=== PATIENT | male | born 1995 | race Caucasian/White ===

== ENCOUNTER 2016-11-14 11:45 | Emergency (ER) | payer MEDICAID, OTHER ==
[~2016-11-14] VITALS: Wt 85.0 kg
[~2016-11-14 11:45] MED LIST: ACET325T33 PO; ACET500C5 PO; ALBU2.5V36 NEB; ALBU8.5H3; ALBU8.5H3 INH; CLOT15CR62 TOP; ESOM40CA PO; IBUP-1542 PO; NEBU1EAC MC; OMEP20CA16 PO; OSLT75C PO; PRED20TA PO; UDMYL PO
[2016-11-14] MEDS ORDERED: DEXAMETHASONE 10 MG/ML 1 ML INJ IM STA (13:05)
[2016-11-14] MEDS ORDERED: ALBUTEROL 0.5% (NEB) 2.5 MG/0.5 ML AMP NEB STA (13:05)
--- NOTE | 2016-11-14 13:34 | RADRPT ---
PROCEDURE: XR Chest. CLINICAL INDICATION: Dyspnea TECHNIQUE: Single frontal chest x-ray. COMPARISON: 09/26/2016 FINDINGS: The lungs are clear. No focal opacification is seen. The cardiomediastinal silhouette is unremarka ble. The osseous structures are unremarkable. IMPRESSION: 1. There is no acute cardiopulmonary process. 2. Stable appearances over time. RPTAT: PP .Tomás Maxwell MD, MD Date Time Electronically viewed and signed by .Tomás Maxwell MD, on 11/14/2016 13:34 .B/
[2016-11-14] MEDS ORDERED: ALBU8.5H3 INH (14:00)
[2016-11-14] MEDS ORDERED: PRED20TA PO (14:00)
[2016-11-14 14:07] VITALS: BP 124/57; PULSE 89; RESP 18; TEMP 98.2
--- NOTE | 2016-11-14 14:07 | ERD ---
ER Documentation Chief Complaint Date/Time DATE: 11/14/16 TIME: 14:02 Chief Complaint ASTHMA OUT OF MEDS HPI This is a 21-year-old male presenting to emergency department for cough and wheezing 1 week. Patient states cough is dry nonproductive. Patient states wheezing has worsened over the last 24 hours. Patient states he has been using his pro-air inhaler more frequently and is now out of medication. Temp of 99F at home. Did not take any medications Tylenol or Motrin. Denies difficulty breathing or shortness of breath. No chest pain. ROS All systems reviewed and are negative except as per history of present illness. Medications Home Meds Active Scripts Prednisone* (Prednisone*) 20 Mg Tab, 40 MG PO DAILY for 4 Days, TAB Prov:DOTTY DUGAN NP 11/14/16 Albuterol Sulfate* (Proair HFA*) 8.5 Gm Hfa.aer.ad, 2 PUFF INH Q4, #1 INHALER Prov:DOTTY DUGAN NP 11/14/16 Prednisone* (Prednisone*) 20 Mg Tab, 40 MG PO DAILY for 4 Days, TAB Prov:JENNIFER GALLARDO PA-C 09/26/16 Ibuprofen* (Motrin*) 600 Mg Tab, 600 MG PO Q6, #30 TAB Prov:JENNIFER GALLARDO PA-C 09/26/16 Betamethasone-Clotrimazole* (Lotrisone*) 15 Gm Cr, 1 APPLIC TOP BID for 7 Days, TUB Prov:SAUL COLINDRES PA-C 07/18/16 Esomeprazole Mag Trihydrate (Nexium) 40 Mg Capsule.dr, 40 MG PO BID, #60 CAP Prov:MCKAYLA SHEN NP 12/13/15 Acetaminophen* (Tylophen*) 500 Mg Capsule, 500 MG PO Q6H Y for pa, #30 TAB Prov:EDINSON REDMAN NP 11/11/15 Magaldrate/Simethicone* (Mag-Al Plus Suspension*) 30 Ml Oral.susp, 30 ML PO Q6H Y for GASTROINTESTINAL UPSET, #120 ML Prov:EDINSON REDMAN NP 11/11/15 Omeprazole* (Omeprazole*) 20 Mg Capsule.dr, 20 MG PO DAILY, #30 CAP Prov:EDINSON REDMAN NP 11/11/15 Acetaminophen* (Tylenol*) 325 Mg Tablet, 2 TAB PO Q8 Y for PAIN AND OR ELEVATED TEMP, #20 TAB Prov:DEBI MADRIGAL PA-C 11/06/15 Ibuprofen* (Motrin*) 600 Mg Tab, 600 MG PO Q6, #30 TAB Prov:DEBI MADRIGAL PA-C 11/06/15 Oseltamivir Phosphate* (Tamiflu*) 75 Mg Capsule, 75 MG PO BID for 5 Days, CAP Prov:DEBI MADRIGAL PA-C 11/06/15 Albuterol Sulfate* (Proair HFA*) 8.5 Gm Hfa.aer.ad, 2 PUFF INH Q4H Y for WHEEZING AND SOB, #1 INHALER Prov:LISSET OHARA MD 10/26/15 Prednisone* (Prednisone*) 20 Mg Tab, 20 MG PO DAILY, #5 TAB Prov:DOTTY DUGAN NP 10/22/15 Albuterol Sulfate* (Albuterol Sulfate* Neb) 0.5%-0.5 Ml Neb, 2.5 MG NEB Q4H Y for WHEEZING AND SOB, #30 VIAL Prov:DOTTY DUGAN NP 10/22/15 Nebulizer* (Nebulizer*) 1 Pkt Each, 1 EACH MC DIRECTED, #1 DME 0 Refills Prov:DOTTY DUGAN NP 10/22/15 Reported Medications Albuterol Sulfate* (Proair HFA*) 8.5 Gm Hfa.aer.ad 09/06/12 Allergies Allergies: Coded Allergies: No Known Drug Allergies (Verified Allergy, Mild, 11/14/16) PMhx/Soc Medical and Surgical Hx: pt denies Surgical Hx History of Surgery: No Anesthesia Reaction: No Hx Neurological Disorder: No Hx Respiratory Disorders: Yes (asthma) Hx Cardiac Disorders: No Hx Psychiatric Problems: No Hx Miscellaneous Medical Probl: No Hx Alcohol Use: No Hx Substance Use: No Hx Tobacco Use: No Smoking Status: Never smoker Physical Exam Vitals Vital Signs Date Time Temp Pulse Resp B/P Pulse Ox O2 Delivery O2 Flow Rate FiO2 11/14/16 13:36 78 20 96 21 11/14/16 11:49 99.0 87 18 97 Physical Exam Const: No acute distress, alert Head: Atraumatic Eyes: Normal Conjunctiva ENT: Normal External Ears, Nose and Mouth. TMs normal bilaterally. No erythema or exudate posterior pharynx. Neck: Full range of motion..~ No meningismus. Resp: Wheezing to auscultation bilaterally posteriorly Cardio: Regular rate and rhythm, no murmurs Abd: Soft, non tender, non distended. Normal bowel sounds Skin: No petechiae or rashes Back: No midline or flank tenderness Ext: No cyanosis, or edema Neur: Awake and alert Psych: Normal Mood and Affect Results 24 hrs Current Medications Medications (Trade) Dose Ordered Sig/Barby Route PRN Reason Start Time Stop Time Status Last Admin Dose Admin Albuterol (Proventil 0.5% (Neb)) 10 mg ONCE STAT NEB 11/14/16 13:05 11/14/16 13:07 DC 11/14/16 13:55 Dexamethasone (Decadron) 10 mg ONCE STAT IM 11/14/16 13:05 11/14/16 13:07 DC 11/14/16 13:19 Procedures/MDM ED COURSE: The patient was stable throughout ED course. I kept the patient and/or family informed of laboratory and diagnostic imaging results throughout the ED course. Decadron given Imaging Chest x-ray Patient: ALBER WALLACE : 1995 Age: 21 Sex: M MR #: [id number] DOS: 11/14/16 1305 Ordering MD: DOTTY DUGAN NP Location: [facility] Room/Bed: PROCEDURE: XR Chest. CLINICAL INDICATION: Dyspnea TECHNIQUE: Single frontal chest x-ray. COMPARISON: 09/26/2016 FINDINGS: The lungs are clear. No focal opacification is seen. The cardiomediastinal silhouette is unremarkable. The osseous structures are unremarkable. IMPRESSION: 1. There is no acute cardiopulmonary process. 2. Stable appearances over time. MDM: This is a 21-year-old male presenting to the emergency department for cough and wheezing 1 week. Patient has history of asthma and has been using his ProAir inhaler more frequently. Patient states he is currently out of medication now. Patient given Decadron. Patient also given albuterol nebulizer treatment per RT. Patient's wheezing has improved. Patient is appropriate for outpatient management. Low suspicion for pneumonia, pleural effusion, pneumothorax or epiglottitis. Patient's diagnosis is asthma with acute exacerbation. Patient is appropriate for outpatient management will be given prescription for pro-air inhaler and prednisone. Instructed patient to follow-up with primary care provider in the next 2-3 days for reassessment and additional management. Return to ED for any high fever, chest pain, difficulty breathing, shortness breath, wheezing, vomiting, diarrhea, abdominal pain or any new or worsening symptoms. Patient verbalizes understanding. All questions answered at discharge. Departure Diagnosis: Primary Impression: Asthma with acute exacerbation Asthma severity: unspecified severity Qualified Code: J45.901 - Asthma with acute exacerbation, unspecified asthma severity Condition: Stable Patient Instructions: Asthma, Acute (Adult) Referrals: CYNDY CHOWDHURY (PCP) Additional Instructions: Call your primary care doctor TOMORROW for an appointment during the next 2-3 days.See the doctor sooner or return here if your condition worsens before your appointment time. Return to ED for any high fever, chest pain, difficulty breathing, shortness breath, wheezing, vomiting, diarrhea, abdominal pain or any new or worsening symptoms. DOTTY DUGAN NP Nov 14, 2016 14:07
== END 2016-11-14 14:08 | disposition home or self-care (01) ==
LOC: FTE 11:45
DX: J45.901 Unspecified asthma with (acute) exacerbation (principal)
CPT/HCPCS: 71010; 94664; 96372; J1100; Z7502; Z7610

== ENCOUNTER 2017-01-24 03:12 | Emergency (ER) | payer MEDICAID ==
[~2017-01-24] VITALS: Ht 167.6 cm; Wt 112.5 kg
[2017-01-24 03:18] VITALS: Ht 167.6 cm; Wt 112.5 kg
--- NOTE | 2017-01-24 04:45 | RADRPT ---
PROCEDURE: Testicle ultrasound with power Doppler. CLINICAL INDICATION: Scrotal pain. TECHNIQUE: Multiple sonographic images of the scrotal region were obtained utilizing a linear arra y transducer with grayscale and color-flow and a Doppler imaging. The images were reviewed on a high -resolution PACS workstation. COMPARISON: None. FINDINGS: Bilateral testicles are normal in size, contour, echogenicity and echotexture. The right testicle m easures 3.8 x 2.4 x 3.1 cm and the left testicle measures 4.5 x 2.3 x 3.1 cm. Testicle arterial and venous flow are normal. There is no evidence of testicular mass or torsion. There is no evidence of orchitis. Bilateral epididymi are normal in size and echogenicity. The right epididymis measures 12.3 x 5.4 x 3.8 mm the left epididymis measures 9.6 x 5.3 x 5.6 mm. There is increased vascularity within the r ight epididymis. There is a small left-sided hydrocele. There is no varicocele. Scrotal soft tiss ues are unremarkable. IMPRESSION: Increased vascularity within the right epididymis suggestive of epididymitis. Small left-sided hydrocele. .Austen Valadez MD, MD Date Time Electronically viewed and signed by .Austen Valadez MD, MD on 01/24/2017 04:45 .T/
[2017-01-24] MEDS ORDERED: CEFTRIAXONE 250 MG INJ IM ONE (05:00)
[2017-01-24] MEDS ORDERED: AZITHROMYCIN 250 MG TAB PO ONE (05:00)
[2017-01-24] MEDS ORDERED: IBUP-1542 PO (05:02)
[2017-01-24 05:04] LABS: URINE BLOOD (Dip) POC Negative (NEGATIVE)
--- NOTE | 2017-01-24 05:22 | ERD ---
ER Documentation Chief Complaint Date/Time DATE: 01/24/17 TIME: 05:19 Chief Complaint testicular pain since 6 days ago HPI This is a 21-year-old male presents to the ER with left testicular pain since Wednesday. Patient denies any testicular redness or swelling. Denies any urinary frequency or dysuria. He denies any penile discharge he denies any fevers or chills. ROS 12 point review of systems was done, all negative except per HPI. Medications Home Meds Active Scripts Ibuprofen* (Motrin*) 600 Mg Tab, 600 MG PO Q6, #30 TAB Prov:IVELISSE LEWIS 01/24/17 Prednisone* (Prednisone*) 20 Mg Tab, 40 MG PO DAILY for 4 Days, TAB Prov:DOTTY DUGAN NP 11/14/16 Albuterol Sulfate* (Proair HFA*) 8.5 Gm Hfa.aer.ad, 2 PUFF INH Q4, #1 INHALER Prov:DOTTY DUGAN NP 11/14/16 Prednisone* (Prednisone*) 20 Mg Tab, 40 MG PO DAILY for 4 Days, TAB Prov:JENNIFER GALLARDO PA-C 09/26/16 Ibuprofen* (Motrin*) 600 Mg Tab, 600 MG PO Q6, #30 TAB Prov:JENNIFER GALLARDO PA-C 09/26/16 Betamethasone-Clotrimazole* (Lotrisone*) 15 Gm Cr, 1 APPLIC TOP BID for 7 Days, TUB Prov:SAUL COLINDRES PA-C 07/18/16 Esomeprazole Mag Trihydrate (Nexium) 40 Mg Capsule.dr, 40 MG PO BID, #60 CAP Prov:MCKAYLA SHEN NP 12/13/15 Acetaminophen* (Tylophen*) 500 Mg Capsule, 500 MG PO Q6H Y for pa, #30 TAB Prov:EDINSON REDMAN NP 11/11/15 Magaldrate/Simethicone* (Mag-Al Plus Suspension*) 30 Ml Oral.susp, 30 ML PO Q6H Y for GASTROINTESTINAL UPSET, #120 ML Prov:EDINSON REDMAN NP 11/11/15 Omeprazole* (Omeprazole*) 20 Mg Capsule.dr, 20 MG PO DAILY, #30 CAP Prov:EDINSON REDMAN NP 11/11/15 Acetaminophen* (Tylenol*) 325 Mg Tablet, 2 TAB PO Q8 Y for PAIN AND OR ELEVATED TEMP, #20 TAB Prov:DEBI MADRIGAL PA-C 11/06/15 Ibuprofen* (Motrin*) 600 Mg Tab, 600 MG PO Q6, #30 TAB Prov:DEBI MADRIGAL PA-C 11/06/15 Oseltamivir Phosphate* (Tamiflu*) 75 Mg Capsule, 75 MG PO BID for 5 Days, CAP Prov:DEBI MADRIGAL PA-C 11/06/15 Albuterol Sulfate* (Proair HFA*) 8.5 Gm Hfa.aer.ad, 2 PUFF INH Q4H Y for WHEEZING AND SOB, #1 INHALER Prov:LISSET OHARA MD 10/26/15 Prednisone* (Prednisone*) 20 Mg Tab, 20 MG PO DAILY, #5 TAB Prov:DOTTY DUGAN NP 10/22/15 Albuterol Sulfate* (Albuterol Sulfate* Neb) 0.5%-0.5 Ml Neb, 2.5 MG NEB Q4H Y for WHEEZING AND SOB, #30 VIAL Prov:DOTTY DUGAN NP 10/22/15 Nebulizer* (Nebulizer*) 1 Pkt Each, 1 EACH MC DIRECTED, #1 DME 0 Refills Prov:DOTTY DUGAN NP 10/22/15 Reported Medications Albuterol Sulfate* (Proair HFA*) 8.5 Gm Hfa.aer.ad 09/06/12 Allergies Allergies: Coded Allergies: No Known Drug Allergies (Verified Allergy, Mild, 11/14/16) PMhx/Soc Medical and Surgical Hx: pt denies Surgical Hx History of Surgery: No Anesthesia Reaction: No Hx Neurological Disorder: No Hx Respiratory Disorders: Yes (asthma) Hx Cardiac Disorders: No Hx Psychiatric Problems: No Hx Miscellaneous Medical Probl: No Hx Alcohol Use: No Hx Substance Use: No Hx Tobacco Use: No Physical Exam Vitals Vital Signs Date Time Temp Pulse Resp B/P Pulse Ox O2 Delivery O2 Flow Rate FiO2 01/24/17 03:18 97.8 94 20 143/87 100 Physical Exam GENERAL: The patient is well developed and appropriate for usual state of health , in no apparent distress. HEENT: Atraumatic. CHEST: Clear to auscultation bilaterally. There are no rales, wheezes or rhonchi. HEART: Regular rate and rhythm. No murmurs, clicks, rubs or gallops. ABDOMEN: Soft, nontender and nondistended. Good bowel sounds. No rebound or guarding. No gross peritonitis. No gross organomegaly or masses. No Chavira sign or McBurney point tenderness. BACK: No midline or flank tenderness. : There is no testicular pain or swelling. No penile discharge. NEURO: Alert and oriented. Results 24 hrs Laboratory Tests Test 01/24/17 05:05 Bedside Urine pH (LAB) 7.0 Bedside Urine Protein (LAB) Negative Bedside Urine Glucose (UA) Negative Bedside Urine Ketones (LAB) Negative Bedside Urine Blood Negative Bedside Urine Nitrite (LAB) Negative Bedside Urine Leukocyte Esterase (L Negative Current Medications Medications (Trade) Dose Ordered Sig/Barby Route PRN Reason Start Time Stop Time Status Last Admin Dose Admin Ceftriaxone Sodium (Rocephin) 250 mg ONCE ONCE IM 01/24/17 05:00 01/24/17 05:01 DC 01/24/17 05:04 Azithromycin (Zithromax) 1,000 mg ONCE ONCE PO 01/24/17 05:00 01/24/17 05:01 DC 01/24/17 05:04 Procedures/MDM This is a 21-year-old male presents to the ER with left testicular pain for the last 6 days. Patient does have epididymitis. He was treated prophylactically with Rocephin and azithromycin. He does not have any evidence of urinary tract infection at this time. Suspicion for testicular torsion is low. Patient is to follow-up with his primary care doctor within 1-2 days or return to ER sooner if symptoms worsen. My medical clinic and was shared with the patient and his plan. Departure Diagnosis: Primary Impression: Epididymitis Condition: Stable Patient Instructions: Epididymitis Additional Instructions: Call your primary care doctor TOMORROW for an appointment during the next 1-2 days.See the doctor sooner or return here if your condition worsens before your appointment time. IVELISSE LEWIS Jan 24, 2017 05:22
== END 2017-01-24 05:15 | disposition home or self-care (01) ==
LOC: FTE 03:12
DX: N45.1 Epididymitis (principal); J45.909 Unspecified asthma, uncomplicated
CPT/HCPCS: 76870; 81003; 87591; 96372; J0696; Z7502; Z7610

== ENCOUNTER 2017-05-03 10:26 | Emergency (ER) | payer MEDICAID, OTHER ==
[~2017-05-03] VITALS: Ht 162.6 cm; Wt 114.0 kg
[2017-05-03 10:28] VITALS: Ht 162.6 cm; Wt 114.0 kg
[2017-05-03 11:13] LABS: URINE BLOOD (Dip) POC Negative (NEGATIVE)
--- NOTE | 2017-05-03 11:50 | ERD ---
ER Documentation Chief Complaint Date/Time DATE: 05/03/17 TIME: 11:46 Chief Complaint Complains of rash /redness to the head of the penis HPI This is a 21-year-old male presenting to the emergency department complaining of irritation at the tip of his penis since Wednesday. He denies any penile discharge, denies any pain associated with it rating it mild in severity. He denies sexual activity, dysuria, discharge swelling. He denies circumcision ROS All systems reviewed and are negative except as per history of present illness. Medications Home Meds Active Scripts Ibuprofen* (Motrin*) 600 Mg Tab, 600 MG PO Q6, #30 TAB Prov:IVELISSE LEWIS 01/24/17 Prednisone* (Prednisone*) 20 Mg Tab, 40 MG PO DAILY for 4 Days, TAB Prov:DOTTY DUGAN NP 11/14/16 Albuterol Sulfate* (Proair HFA*) 8.5 Gm Hfa.aer.ad, 2 PUFF INH Q4, #1 INHALER Prov:DOTTY DUGAN NP 11/14/16 Prednisone* (Prednisone*) 20 Mg Tab, 40 MG PO DAILY for 4 Days, TAB Prov:JENNIFER GALLARDO PA-C 09/26/16 Ibuprofen* (Motrin*) 600 Mg Tab, 600 MG PO Q6, #30 TAB Prov:JENNIFER GALLARDO PA-C 09/26/16 Betamethasone-Clotrimazole* (Lotrisone*) 15 Gm Cr, 1 APPLIC TOP BID for 7 Days, TUB Prov:SAUL COLINDRES PA-C 07/18/16 Esomeprazole Mag Trihydrate (Nexium) 40 Mg Capsule.dr, 40 MG PO BID, #60 CAP Prov:MCKAYLA SHEN NP 12/13/15 Acetaminophen* (Tylophen*) 500 Mg Capsule, 500 MG PO Q6H Y for pa, #30 TAB Prov:EDINSON REDMAN NP 11/11/15 Magaldrate/Simethicone* (Mag-Al Plus Suspension*) 30 Ml Oral.susp, 30 ML PO Q6H Y for GASTROINTESTINAL UPSET, #120 ML Prov:EDINSON REDMAN NP 11/11/15 Omeprazole* (Omeprazole*) 20 Mg Capsule., 20 MG PO DAILY, #30 CAP Prov:EDINSON REDMAN NP 11/11/15 Acetaminophen* (Tylenol*) 325 Mg Tablet, 2 TAB PO Q8 Y for PAIN AND OR ELEVATED TEMP, #20 TAB Prov:DEBI MADRIGAL PA-C 11/06/15 Ibuprofen* (Motrin*) 600 Mg Tab, 600 MG PO Q6, #30 TAB Prov:DEBI MADRIGAL PA-C 11/06/15 Oseltamivir Phosphate* (Tamiflu*) 75 Mg Capsule, 75 MG PO BID for 5 Days, CAP Prov:DEBI MADRIGAL PA-C 11/06/15 Albuterol Sulfate* (Proair HFA*) 8.5 Gm Hfa.aer.ad, 2 PUFF INH Q4H Y for WHEEZING AND SOB, #1 INHALER Prov:LISSET OHARA MD 10/26/15 Prednisone* (Prednisone*) 20 Mg Tab, 20 MG PO DAILY, #5 TAB Prov:DOTTY DUGAN NP 10/22/15 Albuterol Sulfate* (Albuterol Sulfate* Neb) 0.5%-0.5 Ml Neb, 2.5 MG NEB Q4H Y for WHEEZING AND SOB, #30 VIAL Prov:DOTTY DUGAN NP 10/22/15 Nebulizer* (Nebulizer*) 1 Pkt Each, 1 EACH MC DIRECTED, #1 DME 0 Refills Prov:DOTTY DUGAN NP 10/22/15 Reported Medications Albuterol Sulfate* (Proair HFA*) 8.5 Gm Hfa.aer.ad 09/06/12 Allergies Allergies: Coded Allergies: No Known Drug Allergies (Verified Allergy, Mild, 11/14/16) PMhx/Soc History of Surgery: No Anesthesia Reaction: No Hx Neurological Disorder: No Hx Respiratory Disorders: Yes (asthma) Hx Cardiac Disorders: No Hx Psychiatric Problems: No Hx Miscellaneous Medical Probl: No Hx Alcohol Use: No Hx Substance Use: No Hx Tobacco Use: No Physical Exam Vitals Vital Signs Date Time Temp Pulse Resp B/P Pulse Ox O2 Delivery O2 Flow Rate FiO2 05/03/17 10:28 97.3 86 20 130/85 100 Physical Exam Const: [] Head: Atraumatic Eyes: Normal Conjunctiva ENT: Normal External Ears, Nose and Mouth. Neck: Full range of motion..~ No meningismus. Resp: Clear to auscultation bilaterally Cardio: Regular rate and rhythm, no murmurs Abd: Soft, non tender, non distended. Normal bowel sounds retractable foreskin, no swelling, discharge or erythema noted Skin: No petechiae or rashes Back: No midline or flank tenderness Ext: No cyanosis, or edema Neur: Awake and alert Psych: Normal Mood and Affect Results 24 hrs Laboratory Tests Test 05/03/17 11:19 Bedside Urine pH (LAB) 7.5 Bedside Urine Protein (LAB) Trace Bedside Urine Glucose (UA) Negative Bedside Urine Ketones (LAB) Negative Bedside Urine Blood Negative Bedside Urine Nitrite (LAB) Negative Bedside Urine Leukocyte Esterase (L Negative Procedures/MDM This is a 21-year-old male presenting to the emergency department with mild erythema at the tip of the penis likely due to balanitis. No evidence of phimosis or paraphimosis. I discussed the patient prior proper hygiene, discussed with him to continue taking omeprazole twice a day for the next 7 days. Discussed return to the ER for any worsening sensitive. He understands and agrees with plan Departure Diagnosis: Primary Impression: Balanitis Condition: Stable Patient Instructions: Balanitis Additional Instructions: Continue clomitrazole twice a day for the next week and then follow-up with your primary care physician Take all medicines as directed. Return to this facility if you are not improving as expected. GALLITO DUNN PA-C May 03, 2017 11:50
== END 2017-05-03 11:28 | disposition home or self-care (01) ==
LOC: FTE 10:26
DX: N48.1 Balanitis (principal); J45.909 Unspecified asthma, uncomplicated
CPT/HCPCS: 81003; 87591; Z7502; 99283

== ENCOUNTER 2017-08-20 10:34 | Emergency (ER) | payer OTHER ==
[~2017-08-20] VITALS: Wt 117.7 kg
[2017-08-20] MEDS ORDERED: PRED20TA PO (11:44)
[2017-08-20] MEDS ORDERED: ALBU8.5H3 INH (11:44)
[2017-08-20] MEDS ORDERED: AZIT250T94 PO (11:44)
--- NOTE | 2017-08-20 11:49 | ERD ---
ER Documentation Chief Complaint Chief Complaint COUGH, SOB, THROAT PAIN, ONSET 4 DAYS HPI 22-year-old male complains of productive cough for last 4 days. Is a history of asthma. He did have a sore throat that resolved. ROS All systems reviewed and are negative except as per history of present illness. Medications Home Meds Active Scripts Albuterol Sulfate* (Proair HFA*) 8.5 Gm Hfa.aer.ad, 2 PUFF INH Q4, #1 INHALER Prov:DEAN KERR MD 08/20/17 Prednisone* (Prednisone*) 20 Mg Tab, 40 MG PO DAILY for 4 Days, TAB Prov:DEAN KERR MD 08/20/17 Azithromycin* (Zithromax*) 250 Mg Tablet, 250 MG PO .CasiePACK DIRECTED, #6 TAB TAKE 500 MG (2 TABS) THE FIRST DAY THEN 250 MG (1 TAB) DAYS 2-5 Prov:DEAN KERR MD 08/20/17 Ibuprofen* (Motrin*) 600 Mg Tab, 600 MG PO Q6, #30 TAB Prov:IVELISSE LEWIS 01/24/17 Prednisone* (Prednisone*) 20 Mg Tab, 40 MG PO DAILY for 4 Days, TAB Prov:DOTTY DUGAN NP 11/14/16 Albuterol Sulfate* (Proair HFA*) 8.5 Gm Hfa.aer.ad, 2 PUFF INH Q4, #1 INHALER Prov:DOTTY DUGAN NP 11/14/16 Prednisone* (Prednisone*) 20 Mg Tab, 40 MG PO DAILY for 4 Days, TAB Prov:JENNIFER GALLARDO PA-C 09/26/16 Ibuprofen* (Motrin*) 600 Mg Tab, 600 MG PO Q6, #30 TAB Prov:JENNIFER GALLARDO PA-C 09/26/16 Betamethasone-Clotrimazole* (Lotrisone*) 15 Gm Cr, 1 APPLIC TOP BID for 7 Days, TUB Prov:SAUL COLINDRES PA-C 07/18/16 Esomeprazole Mag Trihydrate (Nexium) 40 Mg Capsule.dr, 40 MG PO BID, #60 CAP Prov:MCKAYLA SHEN NP 12/13/15 Acetaminophen* (Tylophen*) 500 Mg Capsule, 500 MG PO Q6H Y for pa, #30 TAB Prov:EDINSON REDMAN NP 11/11/15 Magaldrate/Simethicone* (Mag-Al Plus Suspension*) 30 Ml Oral.susp, 30 ML PO Q6H Y for GASTROINTESTINAL UPSET, #120 ML Prov:EDINSON REDMAN NP 11/11/15 Omeprazole* (Omeprazole*) 20 Mg Capsule.dr, 20 MG PO DAILY, #30 CAP Prov:EDINSON REDMAN NP 11/11/15 Acetaminophen* (Tylenol*) 325 Mg Tablet, 2 TAB PO Q8 Y for PAIN AND OR ELEVATED TEMP, #20 TAB Prov:DEBI MADRIGAL PA-C 11/06/15 Ibuprofen* (Motrin*) 600 Mg Tab, 600 MG PO Q6, #30 TAB Prov:DEBI MADRIGAL PA-C 11/06/15 Oseltamivir Phosphate* (Tamiflu*) 75 Mg Capsule, 75 MG PO BID for 5 Days, CAP Prov:DEBI MADRIGAL PA-C 11/06/15 Albuterol Sulfate* (Proair HFA*) 8.5 Gm Hfa.aer.ad, 2 PUFF INH Q4H Y for WHEEZING AND SOB, #1 INHALER Prov:LISSET OHARA MD 10/26/15 Prednisone* (Prednisone*) 20 Mg Tab, 20 MG PO DAILY, #5 TAB Prov:DOTTY DUGAN NP 10/22/15 Albuterol Sulfate* (Albuterol Sulfate* Neb) 0.5%-0.5 Ml Neb, 2.5 MG NEB Q4H Y for WHEEZING AND SOB, #30 VIAL Prov:DOTTY DUGAN NP 10/22/15 Nebulizer* (Nebulizer*) 1 Pkt Each, 1 EACH MC DIRECTED, #1 DME 0 Refills Prov:DOTTY DUGAN NP 10/22/15 Reported Medications Albuterol Sulfate* (Proair HFA*) 8.5 Gm Hfa.aer.ad 09/06/12 Allergies Allergies: Coded Allergies: No Known Drug Allergies (Verified Allergy, Mild, 11/14/16) PMhx/Soc History of Surgery: No Anesthesia Reaction: No Hx Neurological Disorder: No Hx Respiratory Disorders: Yes (asthma) Hx Cardiac Disorders: No Hx Psychiatric Problems: No Hx Miscellaneous Medical Probl: No Hx Alcohol Use: No Hx Substance Use: No Hx Tobacco Use: No Physical Exam Vitals Vital Signs Date Time Temp Pulse Resp B/P Pulse Ox O2 Delivery O2 Flow Rate FiO2 08/20/17 10:38 98.2 91 17 149/77 96 Physical Exam Const: []Alert, [id number] Head: Atraumatic Eyes: Normal Conjunctiva ENT: Normal External Ears, Nose and Mouth.TMs and oropharynx normal. Neck: Full range of motion..~ No meningismus. Resp: Clear to auscultation bilaterally. Very slight forced wheeze without rales or retractions. Cardio: Regular rate and rhythm, no murmurs Abd: Soft, non tender, non distended. Normal bowel sounds Skin: No petechiae or rashes Back: No midline or flank tenderness Ext: No cyanosis, or edema Neur: Awake and alert Psych: Normal Mood and Affect Procedures/MDM Patient presents with URI symptoms and productive cough with a history of asthma for last 4 days. No signs of hypoxemia or respiratory distress. Treated with Zithromax, prednisone and pro-air refill. The patient was stable with no new complaints during the ER course. Clinically, there is no current evidence to suggest meningitis, sepsis, acute abdomen, pneumonia, acute coronary syndrome, pulmonary embolism, or any other emergent condition appearing to require further evaluation or hospitalization. The patient should certainly return for any new or worsening symptoms per the aftercare instructions. They should otherwise follow-up with her primary care doctor for reevaluation this week. Departure Diagnosis: Primary Impression: Cough Condition: Stable Patient Instructions: Bronchitis With Wheezing (Adult) Additional Instructions: Recheck for new or worsening symptoms or primary care doctor. DEAN KERR MD Aug 20, 2017 11:49
== END 2017-08-20 11:57 | disposition left against medical advice (07) ==
LOC: FTE 10:34
DX: R05 Cough (principal); J45.909 Unspecified asthma, uncomplicated
CPT/HCPCS: 99284

== ENCOUNTER 2017-10-17 17:11 | Emergency (ER) | END 2017-10-17 20:17 | disposition home or self-care (01) ==

== ENCOUNTER 2018-05-16 19:35 | Emergency (ER) | END 2018-05-16 23:17 | disposition home or self-care (01) ==

== ENCOUNTER 2018-08-23 22:17 | Emergency (ER) | END 2018-08-24 00:44 | disposition home or self-care (01) ==

== ENCOUNTER → 2018-12-09 | Emergency (ER) | payer SELFPAY ==
[~2018-12-09] VITALS: Ht 177.8 cm; Wt 117.2 kg
[~2018-12-09] MED LIST changes: -ALBU8.5H3; -ALBU8.5H3 INH; +ALBU8.5H8; +ALBU8.5H8 INH; +AZIT250T PO; +BEN25 PO; +CLOT30CR24 TOP; +DEXAMETHASONE 10 MG/ML 1 ML INJ IM ONE; +DIPHENHYDRAMINE 25 MG CAP PO ONE; +EPIN0.3P4 INJ; +FAMO-96 PO; +LORA10CA PO; +OSEL75CA23 PO; -OSLT75C PO; +TRIA15CR55 TOP
[2018-12-09 03:44] VITALS: BP 160/79; PULSE 99; RESP 18; Ht 177.8 cm; Wt 117.2 kg
--- NOTE | 2018-12-09 07:25 | ERD ---
ER Documentation Chief Complaint Chief Complaint body rash x 1 day, no sob HPI 23-year-old male presenting with a rash to his face that is very itchy and started this morning. He denies any troubles breathing or swallowing. He also has had a rash to his hands for the last few months. He states it is not itchy. He has not use medications. He has no prior known history of allergies. Medical history asthma. NKDA. Surgical history denies. Social history smokes marijuana occasionally. ROS All systems reviewed and are negative except as per history of present illness. Medications Home Meds Active Scripts Prednisone* (Prednisone*) 20 Mg Tab, 40 MG PO DAILY for 4 Days, TAB Prov:DEBI MADRIGAL PA-C 12/09/18 Clotrimazole* (Clotrimazole* AF) 1% - 30 Gm Cream.gm., 1 APPLIC TOP BID for 7 Days, TUB Prov:DEBI MADRIGAL PA-C 12/09/18 Diphenhydramine Hcl* (Benadryl*) 25 Mg Cap, 25 MG PO Q6, #30 CAP Prov:DEBI MADRIGAL PA-C 12/09/18 Ibuprofen* (Motrin*) 600 Mg Tab, 600 MG PO Q6, #30 TAB Prov:LINDA ALLEN PA-C 08/24/18 Triamcinolone Acetonide (Triamcinolone Acetonide) 0.1% - 15 Gm Cream.gm., 1 APPLIC TOP BID, #1 TUB Prov:LINDA ALLEN PA-C 08/24/18 Prednisone* (Prednisone*) 20 Mg Tab, 40 MG PO DAILY for 4 Days, TAB Prov:LINDA ALLEN PA-C 08/24/18 Albuterol Sulfate* (Proair HFA*) 8.5 Gm Hfa.aer.ad, 2 PUFF INH Q4, #1 INHALER Prov:LINDA ALLEN PA-C 08/24/18 Epinephrine (Epipen 2-Cl[place]) 0.3 Mg/0.3 Ml Pen.injctr, 1 EA INJ ONCE PRN for ALLERGIC REACTION, #1 EA Prov:GONZALES WILLAMS 10/17/17 Prednisone* (Prednisone*) 20 Mg Tab, 40 MG PO DAILY for 4 Days, TAB Prov:GONZALES WILLAMS 10/17/17 Albuterol Sulfate* (Proair HFA*) 8.5 Gm Hfa.aer.ad, 2 PUFF INH Q4, #1 INHALER Prov:GONZALES WILLAMS F 10/17/17 Loratadine* (Claritin*) 10 Mg Capsule, 10 MG PO DAILY for 14 Days, CAP Prov:GONZALES WILLAMS F 10/17/17 Diphenhydramine Hcl* (Benadryl*) 25 Mg Cap, 25 MG PO Q6, #30 CAP Prov:GONZALES WILLAMS 10/17/17 Famotidine* (Pepcid*) 20 Mg Tablet, 20 MG PO DAILY for 10 Days, TAB Prov:GONZALES WILLAMS F 10/17/17 Albuterol Sulfate* (Proair HFA*) 8.5 Gm Hfa.aer.ad, 2 PUFF INH Q4, #1 INHALER Prov:DEAN KERR MD 08/20/17 Prednisone* (Prednisone*) 20 Mg Tab, 40 MG PO DAILY for 4 Days, TAB Prov:DEAN KERR MD 08/20/17 Azithromycin* (Zithromax*) 250 Mg Tablet, 250 MG PO .VALERIE DIRECTED, #6 TAB TAKE 500 MG (2 TABS) THE FIRST DAY THEN 250 MG (1 TAB) DAYS 2-5 Prov:DEAN KERR MD 08/20/17 Ibuprofen* (Motrin*) 600 Mg Tab, 600 MG PO Q6, #30 TAB Prov:IVELISSE LEWIS 01/24/17 Prednisone* (Prednisone*) 20 Mg Tab, 40 MG PO DAILY for 4 Days, TAB Prov:DOTTY DUGAN NP 11/14/16 Albuterol Sulfate* (Proair HFA*) 8.5 Gm Hfa.aer.ad, 2 PUFF INH Q4, #1 INHALER Prov:DOTTY DUGAN NP 11/14/16 Prednisone* (Prednisone*) 20 Mg Tab, 40 MG PO DAILY for 4 Days, TAB Prov:JENNIFER GALLARDO PA-C 09/26/16 Ibuprofen* (Motrin*) 600 Mg Tab, 600 MG PO Q6, #30 TAB Prov:JENNIFER GALLARDO PA-C 09/26/16 Betamethasone-Clotrimazole* (Lotrisone*) 15 Gm Cr, 1 APPLIC TOP BID for 7 Days, TUB Prov:SAUL COLINDRESC 07/18/16 Esomeprazole Mag Trihydrate (Nexium) 40 Mg Capsule.dr, 40 MG PO BID, #60 CAP Prov:MCKAYLA SHEN NP 12/13/15 Acetaminophen* (Tylophen*) 500 Mg Capsule, 500 MG PO Q6H PRN for pa, #30 TAB Prov:EDINSON REDMAN NP 11/11/15 Magaldrate/Simethicone* (Mag-Al Plus Suspension*) 30 Ml Oral.susp, 30 ML PO Q6H PRN for GASTROINTESTINAL UPSET, #120 ML Prov:EDINSON REDMAN NP 11/11/15 Omeprazole* (Omeprazole*) 20 Mg Capsule.dr, 20 MG PO DAILY, #30 CAP Prov:EDINSON REDMAN NP 11/11/15 Acetaminophen* (Tylenol*) 325 Mg Tablet, 2 TAB PO Q8 PRN for PAIN AND OR ELEVATED TEMP, #20 TAB Prov:DEBI MADRIGAL PA-C 11/06/15 Ibuprofen* (Motrin*) 600 Mg Tab, 600 MG PO Q6, #30 TAB Prov:DEBI MADRIGAL PA-C 11/06/15 Oseltamivir Phosphate* (Tamiflu*) 75 Mg Capsule, 75 MG PO BID for 5 Days, CAP Prov:DEBI MADRIGAL PA-C 11/06/15 Albuterol Sulfate* (Proair HFA*) 8.5 Gm Hfa.aer.ad, 2 PUFF INH Q4H PRN for WHEEZING AND SOB, #1 INHALER Prov:LISSET OHARA MD 10/26/15 Prednisone* (Prednisone*) 20 Mg Tab, 20 MG PO DAILY, #5 TAB Prov:DOTTY DUGAN NP 10/22/15 Albuterol Sulfate* (Albuterol Sulfate* Neb) 0.5%-0.5 Ml Neb, 2.5 MG NEB Q4H PRN for WHEEZING AND SOB, #30 VIAL Prov:DOTTY DUGAN NP 10/22/15 Nebulizer* (Nebulizer*) 1 Pkt Each, 1 EACH [facility] DIRECTED, #1 DME 0 Refills Prov:DOTTY DUGAN ADOBE MAKER 10/22/15 Reported Medications Albuterol Sulfate* (Proair HFA*) 8.5 Gm Hfa.aer.ad 09/06/12 Allergies Allergies: Coded Allergies: No Known Drug Allergies (Verified Allergy, Mild, 08/20/17) PMhx/Soc History of Surgery: No Anesthesia Reaction: No Hx Neurological Disorder: No Hx Respiratory Disorders: Yes (asthma) Hx Cardiac Disorders: No Hx Psychiatric Problems: No Hx Miscellaneous Medical Probl: No Hx Alcohol Use: Yes (occasionally) Hx Substance Use: Yes (Marijuana,last used 12/05/18) Hx Tobacco Use: No Smoking Status: Never smoker FmHx Family History: No diabetes, No coronary disease, No other Physical Exam Vitals Vital Signs Date Temp Pulse Resp B/P (MAP) Pulse Ox O2 O2 Flow FiO2 Time Delivery Rate 12/09/18 99.5 99 18 160/79 97 03:44 (106) Physical Exam GENERAL: The patient is well-appearing, well-nourished, in no acute distress HEENT: Atraumatic. Conjunctivae are pink. Pupils equal, round, and reactive to light. There is no scleral icterus. Tympanic membranes clear bilaterally. Oropharynx clear. CHEST: Clear to auscultation bilaterally. There are no rales, wheezes or rhonchi. HEART: Regular rate and rhythm. No murmurs, clicks, rubs or gallops. SKIN: Erythematous circular rash on the backs of hands bilaterally with central clearing. Urticaria on face. Results 24 hrs Current Medications Medications Dose Sig/Barby Start Time Status Last (Trade) Ordered Route PRN Stop Time Admin Dose Reason Admin 25 mg ONCE ONCE 12/09/18 DC 12/09/18 Diphenhydrami PO 06:30 06:28 ne HCl 12/09/18 06:31 (Benadryl) 10 mg ONCE ONCE 12/09/18 DC 12/09/18 Dexamethasone IM 06:30 06:28 (Decadron) 12/09/18 06:31 Procedures/MDM ER course: Benadryl and Decadron given ED. MDM: 23-year-old male presenting with rash. Patient's face appears to have a urticarial hive-like rash will be treated with antihistamines. Patient's hands appears to have a fungal tinea rash. Patient will be treated with antifungal medications. Patient is discharged stricter precautions and told to follow-up with primary care within 1-2 days for close evaluation. Patient is told if symptoms change or worsen to return immediately to the ER. All questions answered at discharge Departure Diagnosis: Primary Impression: Rash Condition: Stable Patient Instructions: Self-Care for Skin Rashes Referrals: [facility] Additional Instructions: FOLLOW UP WITH YOUR PRIMARY CARE PHYSICIAN TOMORROW.Return to this facility if you are not improving as expected. DEBI MADRIGAL PA-C Dec 09, 2018 07:25
== END | disposition home or self-care (01) ==
LOC: FTE 03:36
DX: R21 Rash and other nonspecific skin eruption (principal); J45.909 Unspecified asthma, uncomplicated
CPT/HCPCS: 96372; 99284; J1100

== ENCOUNTER 2019-05-23 15:11 | Emergency (ER) | payer SELFPAY ==
[~2019-05-23] VITALS: Ht 177.8 cm; Wt 112.1 kg
[~2019-05-23 15:11] MED LIST changes: +ALBU18HF INHALATION; -DEXAMETHASONE 10 MG/ML 1 ML INJ IM ONE; -DIPHENHYDRAMINE 25 MG CAP PO ONE; +FLUT50DI IH; +MED4DP PO
[2019-05-23 15:28] VITALS: BP 145/92; PULSE 75; RESP 18; Ht 177.8 cm; Wt 112.1 kg
== END 2019-05-23 16:17 | disposition home or self-care (01) ==
LOC: E/R 15:11
DX: J45.901 Unspecified asthma with (acute) exacerbation (principal)
CPT/HCPCS: 99283

== ENCOUNTER 2019-05-31 02:32 | Emergency (ER) | payer SELFPAY ==
[~2019-05-31] VITALS: Ht 177.8 cm; Wt 113.7 kg
[2019-05-31 02:34] VITALS: Ht 177.8 cm; Wt 113.7 kg
[2019-05-31] MEDS ORDERED: predniSONE 20 MG TAB PO STA (03:04)
[2019-05-31] MEDS ORDERED: ALBUTEROL 0.5% (NEB) 2.5 MG/0.5 ML AMP INH STA (03:04)
[2019-05-31 04:11] VITALS: BP 136/61; PULSE 87; RESP 18
== END 2019-05-31 04:13 | disposition home or self-care (01) ==
LOC: FTE 02:32
DX: J45.901 Unspecified asthma with (acute) exacerbation (principal)
CPT/HCPCS: 93005; 94644; 99283; J7512